=== PATIENT | male | born 1990 | race Caucasian/White ===

== ENCOUNTER → 2016-04-26 | Outpatient (CLI) | payer SELFPAY ==
[~2016-04-26] MED LIST: KLONOPIN1 MG PO
== END | disposition short-term general hospital (02) ==
LOC: CLORTH 02:47
DX: S92.324D Nondisplaced fracture of second metatarsal bone, right foot, subsequent encounter for fracture with routine healing (principal); S92.334D Nondisplaced fracture of third metatarsal bone, right foot, subsequent encounter for fracture with routine healing; S92.344D Nondisplaced fracture of fourth metatarsal bone, right foot, subsequent encounter for fracture with routine healing